=== PATIENT | male | born 2000 | race Two or more races ===

== ENCOUNTER 2025-07-29 22:08 | Emergency (ER) | payer MEDICAID, OTHER ==
[~2025-07-29] VITALS: Ht 180.3 cm; Wt 101.8 kg
[2025-07-29] MEDS ORDERED: COROSUS EACH EAR (22:39)
--- NOTE | 2025-07-29 22:41 | ED.PDOC ---
Eye-HPI HPI Comments Pt came to the er with cc of earache, pt states that he was going to bed when he notice the pain on saturday night. Today when he woke up his right ear hurt worse, he has a headache, and he is having a hard time hearing out of the right side. pt is a&ox4 rr even and regular no distress noted at this time Chief Complaint: Earache Time Seen by MD: 22:11 Reviewed Notes: Nurses Notes, Medications, Allergies Information Source: Patient Mode of Arrival: Ambulatory Past Medical History PAST MEDICAL HISTORY: Denies Surgical History: Denies all surgeries Family History Family History: Reviewed,noncontributory to illness Social History Smoker: Non-Smoker Alcohol: Denies ETOH Use Drugs: Denies Drug Use All Other Systems: Reviewed and Negative (see hpi) Physical Exam General Appearance: No Apparent Distress, Normal HEENT: Pharynx Normal, TMs Normal, Other (Right ear canal moderate edema no noted drainage TM intact) Neck: Full Range of Motion, Non-Tender, Normal, Normal Inspection Respiratory: Chest Non-Tender, Lungs Clear, No Accessory Muscle Use, No Respiratory Distress, Normal Breath Sounds Cardiovascular: No Edema, No JVD, No Murmur, No Gallop, Normal Peripheral Pulses, Regular Rate/Rhythm Breast Exam: Deferred Gastrointestinal: No Organomegaly, Non Tender, No Pulsatile Mass, Normal Bowel Sounds, Soft Genitalia: Deferred Pelvic: Deferred Rectal: Deferred Extremities: No calf tenderness, Normal capillary refill, Normal inspection, Normal range of motion, Non-tender, No pedal edema Musculoskeletal : Apperance: Normal Neurologic: Alert, network consultant II-XII nml as Tested, No Motor Deficits, Normal Affect, Normal Mood, No Sensory Deficits Cerebellar Function: Normal Reflexes: Normal Skin: Dry, Normal Color, Warm Lymphatic: No Adenopathy Was a procedure done? Was a procedure done?: No EENT DIFF Eye: N/A Ear: Cerumen Impaction, Foreign Body, Otitis Externa, Barotrauma, Otitis Media, Perforation, Dental, Pharyngitis X-Ray, Labs, Meds, VS Vital Signs Date Time Temp Pulse Resp B/P (MAP) Pulse Ox O2 Delivery O2 Flow Rate FiO2 07/29/25 22:13 98.1 117 18 132/78 97 98.1 X-Ray, Labs, Meds, VS Comment Infected patient given Decadron to decrease swelling to allow antibiotic eardrops patient is started on Rocephin 1 g IM tolerated well reports improvement requesting discharge at this time. Script trial of antibiotic drops advised take medication as prescribed side effects discussed. Advised no under water activity while infection. Follow up with your PCP in 2-3 days if no improvement ER return precautions given patient indicates understanding agrees with discharge plan of care. Time of 1ST Reevaluation: 22:11 Reevaluation 1ST: Unchanged Time of 2ND Reevaluation: 22:40 Reevaluation 2ND: Improved Patient Education/Counseling: Diagnosis, Treatment, Prognosis, Need For Follow Up Family Education/Counseling: No Family Present SEPSIS Sepsis Screen Date sepsis recognized/suspect: Jul 29, 2025 Time Sepsis recognized/suspect: 2216 Recent Procedure: No (t) On Antibiotic Therapy: No Respiratory Rate >20: No Heart Rate >90: Yes Temp<36 C (96.8 F) or >38.3 C: No SBP <90 or MAP <65 mmHG: No New Acute Mental Status Change: No Is the patient on CPAP, BIPAP,: No Vital Signs Date Time Temp Pulse Resp B/P (MAP) Pulse Ox O2 Delivery O2 Flow Rate FiO2 07/29/25 22:13 98.1 117 18 132/78 97 98.1 Departure 1 Departure Time of Disposition: 22:36 Impression: Primary Impression: Otitis externa of right ear Qualified Codes: H60.501 - Unspecified acute noninfective otitis externa, right ear Disposition: HOME / SELF CARE / HOMELESS Condition: Stable e-Prescriptions [id number]-[id number] (Otic) (Cortisporin Otic Susp) [address] 4 DROP EACH EAR TID for 10 Days, #10 ML Prov: RONDA MANZANO 07/29/25 Discharged With: Self Critical Care Note Critical Care Time?: No Stability Stability form required: RONDA Reeder Jul 29, 2025 22:41
[2025-07-29] MEDS: cefTRIAXone SOD 1,000 MG VL IM ONE (23:04)
[2025-07-29 23:10] VITALS: BP 128/79; PULSE 97; RESP 18; TEMP 97.9; O2SAT 97
[2025-07-29] MEDS ORDERED: LIDOCAINE 1% HCL (LOCAL ANESTH.) INJ 20ML MDV ONE (23:38)
== END 2025-07-29 23:13 | disposition home or self-care (01) ==
LOC: ER 22:08
DX: H60.91 Unspecified otitis externa, right ear (principal)
CPT/HCPCS: 96372; 99284; J0696; J1100; J2003